=== PATIENT | male | born 1965 | race Caucasian/White ===

== ENCOUNTER 2020-09-16 20:32 | Observation (INO) ==
[2020-09-16] MEDS ORDERED: Isovue-370 500 ML BOTTLE IVP ONE (20:42)
[2020-09-16] MEDS ORDERED: *HR* Enoxaparin 80 MG/0.8 ML SYRINGE SQ ONE (22:18)
[2020-09-16] MEDS: 0.9 % Sodium Chloride 1,000 ML IVC SCH ×2 (22:29→23:21)
[2020-09-17] MEDS ORDERED: Ondansetron 4 MG/2 ML VIAL IVP PRN (00:44)
[2020-09-17] MEDS ORDERED: Acetaminophen 325 MG TABLET PO PRN (00:44)
[2020-09-17] MEDS ORDERED: Naloxone 0.4 MG/ML INJ IVP PRN (00:44)
[2020-09-17 04:42] LABS: Amphetamine Screen,Urine Negative ng/mL (Cutoff=1000); Barbiturate Screen,Urine Negative ng/mL (Cutoff=200); Benzodiazepines Screen,Urine Negative ng/mL (Cutoff=200); Cannabinoid Screen,Urine Positive ng/mL (Cutoff = 50); Cocaine Screen,Urine Negative ng/mL (Cutoff= 300); Opiate Screen,Urine Negative ng/mL (Cutoff=300); Phencyclidine Screen,Urine Negative ng/mL (Cutoff=25)
[2020-09-17 07:17] LABS: Prothrombin Time 11.7 Seconds (9.4-12.1)
[2020-09-17 07:21] LABS: Activated Partial Thrombo Time 30.5 Seconds (26.0-36.0)
[2020-09-17] MEDS: 0.9 % Sodium Chloride 1,000 ML IVC SCH ×2 (07:25→17:07)
[2020-09-17 07:28] LABS: Hematocrit 44.4 % (37.5-50.1); Hemoglobin 14.6 g/dL (12.9-16.9); Mean Corpuscular HGB Conc 32.9 g/dL (31.6-35.5); Mean Corpuscular Hemoglobin 29.3 pg (28.0-33.3); Mean Corpuscular Volume 89.2 fL (83.0-100.0); Platelet Count 179 K/mcL (140-400); Red Blood Count 4.98 M/mcL (4.19-5.50); Red Cell Distribution Width 13.4 % (11.5-14.5); White Blood Count 4.1 K/mcL (4.3-11.1)
[2020-09-17 07:59] LABS: BUN/Creatinine Ratio 18 (6-26); Blood Urea Nitrogen 14 mg/dL (6-20); Calcium 9.3 mg/dL (8.6-10.3); Carbon Dioxide 24 mEq/L (23-29); Chloride 105 mEq/L (98-107); Glucose 190 mg/dL (70-105); Osmolality,Calculated 284 (280-300); Potassium 4.2 mEq/L (3.5-5.1); Sodium 134 mEq/L (136-145); eGFR For African Americans > 60 (> 60); eGFR For Non-African Americans > 60 (> 60)
[2020-09-17 08:01] LABS: Albumin 3.7 g/dL (3.5-5.7); Albumin/Globulin Ratio 1.5 (1.1-2.2); Bilirubin,Direct 0.1 mg/dL (0.0-0.2); Bilirubin,Indirect 0.2 mg/dL (0.0-1.0); Bilirubin,Total 0.3 mg/dL (0.3-1.0); Chol/HDL Ratio 2.6 (0-4.9); Globulin 2.4 g/dL (2.4-3.5); Total Protein 6.1 g/dL (6.4-8.9)
[2020-09-17 08:24] LABS: Hepatitis B Surface Antigen Nonreactive (Nonreactive)
[2020-09-17 08:54] LABS: Hepatitis C Virus Antibody Nonreactive (Nonreactive)
[2020-09-17 08:56] LABS: Hepatitis A Antibody IgM Nonreactive (Nonreactive); Hepatitis B Core IgM Nonreactive (Nonreactive)
[2020-09-17] MEDS: Aspirin 81 MG TAB.CHEW PO SCH (10:46)
[2020-09-17] MEDS: *HR* Enoxaparin 80 MG/0.8 ML SYRINGE SQ SCH ×2 (10:46→21:00)
[2020-09-17] MEDS ORDERED: Perflutren Lipid Microsphere 1.3 ML in 0.9 % Sodium Chloride 8.7 ML IVP PRN (11:00)
[2020-09-18] MEDS: 0.9 % Sodium Chloride 1,000 ML IVC SCH (01:10)
[2020-09-18 02:20] LABS: Hematocrit 42.7 % (37.5-50.1); Mean Corpuscular HGB Conc 32.8 g/dL (31.6-35.5); Mean Corpuscular Hemoglobin 29.4 pg (28.0-33.3); Mean Corpuscular Volume 89.7 fL (83.0-100.0); Mean Platelet Volume 9.7 fL (9.4-12.4); Platelet Count 180 K/mcL (140-400); Red Blood Count 4.76 M/mcL (4.19-5.50); Red Cell Distribution Width 13.5 % (11.5-14.5)
[2020-09-18 02:21] LABS: White Blood Count 6.9 K/mcL (4.3-11.1)
[2020-09-18 02:39] LABS: Alanine Aminotransferase 51 Units/L (7-52); Albumin 3.4 g/dL (3.5-5.7); Albumin/Globulin Ratio 1.5 (1.1-2.2); Alkaline Phosphatase 81 Units/L (34-104); Aspartate Amino Transferase 38 Units/L (13-39); BUN/Creatinine Ratio 18 (6-26); Bilirubin,Total 0.3 mg/dL (0.3-1.0); Blood Urea Nitrogen 13 mg/dL (6-20); Carbon Dioxide 23 mEq/L (23-29); Chloride 107 mEq/L (98-107); Globulin 2.3 g/dL (2.4-3.5); Glucose 100 mg/dL (70-105); Osmolality,Calculated 282 (280-300); Potassium 3.9 mEq/L (3.5-5.1); Sodium 136 mEq/L (136-145); Total Protein 5.7 g/dL (6.4-8.9); eGFR For African Americans > 60 (> 60); eGFR For Non-African Americans > 60 (> 60)
[2020-09-18] MEDS: *HR* Enoxaparin 80 MG/0.8 ML SYRINGE SQ SCH ×2 (07:44→20:07)
[2020-09-18] MEDS: Aspirin 81 MG TAB.CHEW PO SCH (07:45)
[2020-09-18] MEDS: FLUoxetine HCl Oral Soln 20 MG/5 ML UDC PO SCH (07:45)
[2020-09-19 05:23] LABS: Hematocrit 45.5 % (37.5-50.1); Mean Corpuscular Hemoglobin 29.6 pg (28.0-33.3); Mean Corpuscular Volume 89.9 fL (83.0-100.0); Mean Platelet Volume 9.1 fL (9.4-12.4); Platelet Count 209 K/mcL (140-400); Red Blood Count 5.06 M/mcL (4.19-5.50); Red Cell Distribution Width 13.6 % (11.5-14.5); White Blood Count 7.2 K/mcL (4.3-11.1)
[2020-09-19] MEDS: *HR* Enoxaparin 80 MG/0.8 ML SYRINGE SQ SCH (07:26)
[2020-09-19] MEDS: FLUoxetine HCl Oral Soln 20 MG/5 ML UDC PO SCH (07:26)
[2020-09-19] MEDS: Aspirin 81 MG TAB.CHEW PO SCH (07:26)
[2020-09-19 07:50] VITALS: BP 115/87
== END 2020-09-19 11:34 ==
LOC: 3BNU 20:32 → EMEROOARM 20:32 → SUATTDRO 22:27 → 3BNU 22:52
PROVIDERS: ADMIT Internal Medicine; ATTEND Internal Medicine

== ENCOUNTER 2020-09-19 11:29 | Inpatient (IN) ==
[2020-09-19] MEDS ORDERED: Acetaminophen 325 MG TABLET PO PRN (11:35)
[2020-09-19] MEDS ORDERED: Haloperidol Lactate 5 MG/ML VIAL IM PRN (11:35)
[2020-09-19] MEDS ORDERED: haloperidoL 5 MG TABLET PO PRN (11:35)
[2020-09-19] MEDS ORDERED: Mag Hydrox/Al Hydrox/Simeth 30 ML UDC PO PRN (11:35)
[2020-09-19] MEDS ORDERED: MOM Conc 10 ML UD.LIQ PO PRN (11:35)
[2020-09-19] MEDS ORDERED: traZODone 50 MG TABLET PO PRN (11:35)
[2020-09-19] MEDS ORDERED: hydrOXYzine pamoate 25 MG CAPSULE PO PRN (11:35)
[2020-09-19] MEDS ORDERED: *HR* LORazepam 2 MG/ML VIAL IM PRN (11:35)
[2020-09-19] MEDS ORDERED: *HR* LORazepam 1 MG TABLET PO PRN (11:35)
[2020-09-19] MEDS: Apixaban 5 MG TABLET PO SCH (20:44)
[2020-09-20] MEDS ORDERED: FLUoxetine HCl Oral Soln 20 MG/5 ML UDC PO SCH (09:00)
[2020-09-20] MEDS: Apixaban 5 MG TABLET PO SCH ×3 (09:34→20:32)
[2020-09-20] MEDS: FLUoxetine 20 MG CAPSULE PO SCH (09:37)
[2020-09-20] MEDS: Aspirin 81 MG TAB.CHEW PO SCH (09:37)
[2020-09-21] MEDS: Apixaban 5 MG TABLET PO SCH ×2 (10:16→20:27)
[2020-09-21] MEDS: Aspirin 81 MG TAB.CHEW PO SCH (10:17)
[2020-09-21] MEDS: FLUoxetine 20 MG CAPSULE PO SCH ×2 (10:20)
[2020-09-22] MEDS: Aspirin 81 MG TAB.CHEW PO SCH (09:06)
[2020-09-22] MEDS: FLUoxetine 20 MG CAPSULE PO SCH (09:06)
[2020-09-22] MEDS: Apixaban 5 MG TABLET PO SCH ×2 (09:07→20:24)
[2020-09-22] MEDS ORDERED: FLUoxetine HCl Oral Soln 20 MG/5 ML UDC PO ONE (10:00)
[2020-09-23] MEDS: Aspirin 81 MG TAB.CHEW PO SCH (09:03)
[2020-09-23] MEDS: FLUoxetine 20 MG CAPSULE PO SCH (09:06)
[2020-09-23] MEDS: Apixaban 5 MG TABLET PO SCH ×2 (10:20→20:02)
[2020-09-24] MEDS: Aspirin 81 MG TAB.CHEW PO SCH (08:53)
[2020-09-24] MEDS: FLUoxetine 20 MG CAPSULE PO SCH (08:53)
[2020-09-24] MEDS: Apixaban 5 MG TABLET PO SCH (08:54)
[2020-09-24 09:12] VITALS: BP 93/66
[2020-09-26] MEDS ORDERED: Apixaban 5 MG TABLET PO SCH (21:00)
== END 2020-09-24 14:35 | disposition home or self-care (01) | DRG 751 ==
LOC: 1ANU 11:29
PROVIDERS: ADMIT Psychiatry & Neurology Psychiatry; ATTEND Psychiatry & Neurology Psychiatry